=== PATIENT | male | born 1970 | race African-American/Black ===

== ENCOUNTER 2018-10-01 16:10 | Inpatient (IN) | payer OTHER ==
[2018-10-01 17:55] VITALS: BMI 20.3
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
[2018-10-01] MEDS ORDERED: MAG HYDROX/AL HYDROX/SIMETH 30 ML UNIT-DOSE CUP PO PRN (19:33)
[2018-10-01] MEDS ORDERED: MENTHOL/PHENOL 1 EACH UD MM PRN (19:33)
[2018-10-01] MEDS ORDERED: diazePAM 5 MG TABLET PO PRN (19:33)
[2018-10-01] MEDS ORDERED: METHOCARBAMOL 500 MG TABLET PO PRN (19:33)
[2018-10-01] MEDS ORDERED: ACETAMINOPHEN 325 MG TABLET (FP) PO PRN ×2 (19:33)
[2018-10-01] MEDS ORDERED: BISMUTH SUBSALICYLATE 524 MG/30 ML UD PO PRN (19:33)
[2018-10-01] MEDS ORDERED: MELATONIN 5 MG TABLETS PO PRN (19:33)
[2018-10-01] MEDS ORDERED: MAGNESIUM HYDROX 2400MG/30ML ORAL SUSPENSION 30 ML CUP PO PRN (19:33)
[2018-10-01] MEDS ORDERED: hydrOXYzine PAMOATE 25 MG CAPSULE (FP) PO PRN (19:33)
[2018-10-01] MEDS ORDERED: IBUPROFEN 400 MG TABLET (FP) PO PRN (19:33)
[2018-10-01] MEDS ORDERED: MAGNESIUM CITRATE 300 ML BOTTLE PO PRN (19:33)
[2018-10-01] MEDS ORDERED: THIAMINE HCL 100 MG TABLET (FP) PO SCH (22:00)
[2018-10-01] MEDS: diazePAM 5 MG TABLET PO SCH (23:28)
[2018-10-02] MEDS: diazePAM 5 MG TABLET PO SCH ×2 (05:43→13:20)
[2018-10-02] MEDS ORDERED: PRENATAL VITAMINS W/ FOLIC ACID TABLET (FP) PO SCH (10:00)
[2018-10-02] MEDS ORDERED: METHYL SALICYLATE/MENTHOL OINT 30 GM TUBE TP SCH (10:30)
[2018-10-02 10:32] LABS: HEMATOCRIT 39.5 % (35.4-49); HEMOGLOBIN 13.1 GM/dL (11.7-16.9); MCHC 33.3 g/dl (32.0-35.9); MEAN PLT VOLUME 8.5 fl (7.5-11.1); PLATELET COUNT 290 K/MM3 (134-434); RBC 4.24 M/mm3 (4.00-5.60); RDW 14.1 % (11.9-15.9); WHITE BLOOD COUNT 7.2 K/mm3 (4.0-10.0)
[2018-10-02 11:38] LABS: ALBUMIN 3.4 g/dl (3.4-5.0); BILIRUBIN,TOTAL 0.5 mg/dL (0.2-1); CREATININE 0.8 mg/dL (0.55-1.3); POTASSIUM 4.4 mmol/L (3.5-5.1); TOT PROT 6.4 g/dl (6.4-8.2)
[2018-10-02] MEDS ORDERED: ARIPiprazole 15 MG TABLET PO SCH (13:30)
--- NOTE | 2018-10-02 13:30 | CONSULT ---
[facility] Psychiatric Consult - Data Date of interview: 10/02/18 Admission source: [facility] Identifying data: Patient is a 48 year old single male, without children, unemployed, residing in a mental health nursing home, and is supported by Welfare. This is patient's first admission to detox. Patient admitted to for alcohol dependence. Substance Abuse History: Substances abused. Alcohol. Substance route: Oral. Frequency: Daily. Amount used: 1 BOTTLE VODKA. Age of first use: 13. Date of last use: 10/01/18. Crack. Substance route: Smoking. Frequency: Daily. Amount used: $100. Age of first use: 15. Date of last use: 09/30/18. K2/Spice. Substance route: Smoking. Frequency: Daily. Amount used: $10. Age of first use: 48. Date of last use: 09/20/18 Medical History: left eye surgery Psychiatric History: Mr. Magaña presents as mildly irritable. He reports h/o multiple psychiatric hospitalization most recently 1.5 years ago but is unable to states the names of the facilites. He reports a h/o schizophrenia . States he has a history of seeing and hearing things. Mr. Magaña is currently residing at the [facility] health [facility] ([facility]). He reports medication compliance to Abilify 15mg + Depakote 500mg BID + Trazodone 100mg. At present he denies auditory/visual hallucinations. He reports medication compliance and is requesting to have all his medications ordered. Denies h/o suicide attempt. He reports poor sleep last night. Physical/Sexual Abuse/Trauma History: denies. Mental Status Exam - Mental Status Exam Alert and Oriented to: Time, Place, Person Cognitive Function: Good Patient Appearance: Well Groomed Mood: Irritable Affect: Mood Congruent Patient Behavior: Cooperative, Agitated (Cooperative but slightly irritable and agitated when asked about his psychiatric history) Speech Pattern: Appropriate Voice Loudness: Normal Thought Process: Goal Oriented Thought Disorder: Not Present Hallucinations: Denies Suicidal Ideation: Denies Homicidal Ideation: Denies Insight/Judgement: Poor Sleep: Poorly Appetite: Fair Muscle strength/Tone: Normal Gait/Station: Normal Psychiatric Findings - Problem List ([place] 1, 2,3) (1) Schizoaffective disorder Current Visit: Yes Status: Chronic (2) Alcohol abuse Current Visit: Yes Status: Acute - Initial Treatment Plan Initial Treatment Plan: Psychoeducation provided. Detoxification in progress. Will order Abilify 15 daily + Depakote 500mg BID + Trazodone 100mg HS. Benefits and side effects discussed. Verbal consent given.
[2018-10-02] MEDS ORDERED: CEPHALEXIN MONOHYDRATE 500 MG CAPSULE (UD) PO SCH (14:00)
--- NOTE | 2018-10-02 14:12 | PN ---
[facility] CIWA - CIWA Score Nausea/Vomitin-No Nausea/No Vomiting Muscle Tremors: None Anxiety: 4-Mod. Anxious/Guarded Agitation: 2 Paroxysmal Sweats: 2 Orientation: 0-Oriented Tacttile Disturbances: 2-Mild Itch/Numbness/Burn Auditory Disturbances: 2-Mild Harshness/Frighten Visual Disturbances: 0-None Headache: 0-None Present CIWA-Ar Total Score: 12 S Progress Note (SOAP) Subjective: Body Aches, Interrupted sleep, Sweating. Objective: PATIENT A & O X 3, OBSERVED AMBULATING ON UNIT UNASSISTED. IN NO ACUTE DISTRESS. 10/02/18 14:00 Vital Signs Temperature 97 F L 10/02/18 13:52 Pulse Rate 74 10/02/18 13:52 Respiratory Rate 16 10/02/18 13:52 Blood Pressure 109/71 10/02/18 13:52 O2 Sat by Pulse Oximetry (%) Laboratory Tests 10/02/18 10/02/18 07:35 07:35 WBC 7.2 RBC 4.24 Hgb 13.1 Hct 39.5 MCV 93.0 MCH 31.0 MCHC 33.3 RDW 14.1 Plt Count 290 MPV 8.5 Sodium 141 Potassium 4.4 Chloride 107 Carbon Dioxide 24 Anion Gap 10 BUN 13 Creatinine 0.8 Est GFR (CKD-EPI)AfAm 122.43 Est GFR (CKD-EPI)NonAf 105.63 Random Glucose 111 H Calcium 9.0 Total Bilirubin 0.5 AST 17 ALT 26 Alkaline Phosphatase 100 Total Protein 6.4 Albumin 3.4 LABS NOTED. RPR RESULT PENDING. 10/02/18 14:00 Assessment: 10/02/18 14:00 WITHDRAWAL SYMPTOMS. Plan: CONTINUE DETOX. PRN ROBAXIN PO, TOPICAL DELIA-DONIS FOR BODY ACHES / MUSCLE SPASMS. PATIENT REPORTS HISTORY OF "ABSCESS" ON LEFT FOREARM THAT HAS BEEN PRESENT FOR SEVERAL WEEKS. ELEVATED GROWTH (APPROX. 1 INCH IN DIAMETER) NOTED ON PATIENT'S LEFT FOREARM. NO ERYTHEMA, WOUNDS, OR UNUSUAL DISCHARGE NOTED AT AFFECTED SITE. PATIENT REPORTS THAT HE HAS SEEN OUTSIDE MEDICAL PROVIDER REGARDING THIS MATTER AND THAT HE WILL LIKELY HAVE IT SURGICALLY REMOVED IN NEAR FUTURE. PATIENT ALSO REPORTS THAT HE WAS CURRENTLY PRESCRIBED ANTIBIOTIC FOR THE GROWTH PRIOR TO ADMISSION TO DETOX AND THAT HE DID NOT COMPLETE THE FULL COURSE OF THE ANTIBIOTIC PRIOR TO ADMISSION TO DETOX. PATIENT UNABLE TO RECALL NAME OF ANTIBIOTIC AND HE DID NOT BRING THE BOTTLE FOR THE MEDICATION WITH HIM AT TIME OF ADMISSION TO DETOX. PATIENT ALSO NOTES THAT HE CURRENTLY HAS HIS MEDICATIONS SHIPPED TO HIM AT RESIDENCE AT WHICH HE LIVES ([place], [place] ) AND THAT HE DOES NOT KNOW NAME OF PHARMACY FROM WHICH HIS MEDICATIONS ARE SHIPPED. ACCORDING TO FIRER KILN (BRITTNI) WHO ADMINISTERS MEDICATIONS TO CLIENTS AT [facility], NO ANTIBIOTIC IS CURRENTLY INCLUDED IN MEDICATIONS THAT PATIENT RECEIVES ON A DAILY BASIS THERE. KEFLEX PO ORDERED FOR PATIENT TO HELP TREAT ABSCESS FOR TIME BEING. PATIENT ADVISED TO FOLLOW-UP WITH MEDICAL PROVIDER WHOM HE HAS PREVIOUSLY CONSULTED FOR THIS MATTER AFTER DISCHARGE FROM DETOX UNIT. PATIENT VERBALIZED UNDERSTANDING OF RECOMMENDATION.
[2018-10-02 18:40] VITALS: BP 116/77; PULSE 89; TEMP 97
[2018-10-02] MEDS ORDERED: DIVALPROEX SODIUM 500 MG TABLET E.C. PO SCH (22:00)
[2018-10-02] MEDS ORDERED: traZODone HCL 100 MG TABLET (FP) PO SCH (22:00)
[2018-10-03] MEDS ORDERED: diazePAM 5 MG TABLET PO SCH (10:00)
[2018-10-04] MEDS ORDERED: diazePAM 5 MG TABLET PO SCH (06:00)
== END 2018-10-02 19:43 | disposition home or self-care (01) | DRG 774 ==
LOC: YASAS 16:10 → Y3N 20:24
PROVIDERS: ADMIT Surgery; ATTEND Surgery
PROC: HZ2ZZZZ Detoxification Services for Substance Abuse Treatment (ICD-10-PCS; principal; 2018-10-01)
DX: F10.230 Alcohol dependence with withdrawal, uncomplicated (principal); F14.20 Cocaine dependence, uncomplicated; F25.9 Schizoaffective disorder, unspecified; F19.20 Other psychoactive substance dependence, uncomplicated; Z59.0 Homelessness
CPT/HCPCS: 36415; 80053; 85027; 86593